=== PATIENT | female | born 2000 | race Caucasian/White ===

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

== ENCOUNTER 2023-06-29 20:46 | Emergency (ER) | payer OTHER ==
[~2023-06-29] VITALS: Wt 86.2 kg
== END 2023-06-29 23:57 | disposition home or self-care (01) ==
LOC: ED 20:46
DX: S99.022A Salter-Harris Type II physeal fracture of left calcaneus, initial encounter for closed fracture (principal); Z98.890 Other specified postprocedural states; X58.XXXA Exposure to other specified factors, initial encounter; Y93.39 Activity, other involving climbing, rappelling and jumping off; Y92.89 Other specified places as the place of occurrence of the external cause; Y99.8 Other external cause status

== ENCOUNTER 2024-05-26 18:07 | Emergency (ER) | payer SELFPAY ==
[~2024-05-26] VITALS: Ht 157.4 cm; Wt 81.6 kg
[2024-05-26] MEDS ORDERED: AMOX-CLAV 875-1 EACH PO (19:51)
[2024-05-26] MEDS ORDERED: Amoxicillin/Clavulanate Pota 875 MG TAB PO ONE (19:55)
== END 2024-05-26 20:13 | disposition home or self-care (01) ==
LOC: ED 18:07
DX: H66.91 Otitis media, unspecified, right ear (principal); Z90.49 Acquired absence of other specified parts of digestive tract

== ENCOUNTER 2024-10-16 16:40 | Emergency (ER) | payer SELFPAY ==
[~2024-10-16] VITALS: Ht 160 cm; Wt 96.8 kg
[~2024-10-16 16:40] MED LIST changes: +AMOX-CLAV 875-1 EACH PO
[2024-10-16] MEDS ORDERED: AVPAK AZITHROM250 M1 PO (17:11)
== END 2024-10-16 17:51 | disposition home or self-care (01) ==
LOC: ED 16:40
DX: J40 Bronchitis, not specified as acute or chronic (principal); F17.210 Nicotine dependence, cigarettes, uncomplicated; Z90.49 Acquired absence of other specified parts of digestive tract

== ENCOUNTER 2025-05-16 19:08 | Emergency (ER) | payer SELFPAY ==
[~2025-05-16] VITALS: Ht 160 cm; Wt 86.2 kg
[~2025-05-16 19:08] MED LIST changes: +AVPAK AZITHROM250 M1 PO
[2025-05-16] MEDS ORDERED: NAPROSYN500 MG PO (20:07)
== END 2025-05-16 20:24 | disposition home or self-care (01) ==
LOC: ED 19:08
DX: S93.401A Sprain of unspecified ligament of right ankle, initial encounter (principal); X50.9XXA Other and unspecified overexertion or strenuous movements or postures, initial encounter; Y93.89 Activity, other specified; Y92.89 Other specified places as the place of occurrence of the external cause; Y99.8 Other external cause status

== ENCOUNTER → 2025-06-20 | Outpatient (CLI) | payer OTHER ==
[~2025-06-20] MED LIST changes: +NAPROSYN500 MG PO
== END | disposition home or self-care (01) ==
LOC: MRI 13:23
PROVIDERS: ATTEND Orthopaedic Surgery
DX: S93.491D Sprain of other ligament of right ankle, subsequent encounter (principal); M25.474 Effusion, right foot; M25.471 Effusion, right ankle; X58.XXXD Exposure to other specified factors, subsequent encounter